=== PATIENT | female | born 1960 | race Caucasian/White ===

== ENCOUNTER 2018-03-17 12:38 | Observation (INO) ==
[2018-03-17] MEDS ORDERED: Aspirin 81 MG TAB.CHEW PO ONE (12:46)
[2018-03-17] MEDS ORDERED: Nitroglycerin 0.4 MG TAB.SUBL SL ONE (12:46)
--- NOTE | 2018-03-17 13:06 | Emergency Department Note ---
Disposition Clinical Impression: Chest pain Qualifiers: Chest pain type: unspecified Qualified Code(s): R07.9 - Chest pain, unspecified Disposition: Admitted As Inpatient Condition: Good Referrals: Eliezer Arita MD [Primary Care Provider] - Forms: ED Satisfaction Letter Time of Disposition: 14:32 Chest Pain HPI - General Chief Complaint: ED Chest Pain Stated Complaint: right shoulder pain worsening now in chest Time Seen by Provider: 03/17/18 12:45 Source: patient Limitations: no limitations Vital Signs Reviewed: Yes Nursing Notes Reviewed: Yes - History of Present Illness HPI Narrative: 57 year old female presntes to the ED with complaints of right sided chest pain/ pressure that started this mornig and radiates to the left arm now. She states that she has had a 3 vessel bypass in the past and that she chronic right shoulder pain with arthritis and this is a different type of pressurein her chest which is now radiating in to her left arm. She has muliptle risk factors and a concernling clinical history. PAtinet states that she also is diaphoretic and has exertional dyspnea with it as well. No vomitting or nausea. Severity scale (1-10): 6 - Related Data Home Medications Medication Instructions Recorded Confirmed Albuterol Sulfate [Albuterol 2 puff IH Q4HR PRN 10/12/15 03/17/18 Inhaler] Metoprolol [Lopressor] 25 mg PO BID 10/12/15 03/17/18 Aclidinium Dawson [Tudorza 400 mcg IH BID 01/25/16 03/17/18 Pressair] Aspirin Enteric Coated [Aspirin EC] 81 mg PO BID 01/25/16 03/17/18 Budesonide/Formoterol 160/4.5 2 puff IH BIDR 01/25/16 03/17/18 [Symbicort 160/4.5] Citalopram [CeleXA] 20 mg PO DAILY 02/15/17 03/17/18 Isosorbide MONOnitrate (24 HR) 30 mg PO DAILY 02/15/17 03/17/18 [Imdur] Atorvastatin [Lipitor] 40 mg PO HS 02/02/18 03/17/18 Albuterol Sulfate [Albuterol 2 puff IH Q6H PRN 03/17/18 03/17/18 Inhaler] Allergies Allergy/AdvReac Type Severity Reaction Status Date / Time No Known Allergies Allergy Verified 03/17/18 13:58 Constitutional: Denies: fever, chills, weakness, weight change Eyes: Denies: eye pain, eye discharge, vision change ENT ED: Denies: ear pain, throat pain, dental pain, hearing loss, epistaxis, congestion, dysphagia Cardiovascular: Reports: chest pain, dyspnea on exertion. Denies: palpitations , edema, syncope Respiratory: Denies: cough, dyspnea, wheezes, hemoptysis, stridor Gastrointestinal: Denies: abdominal pain, nausea, vomiting, diarrhea, constipation, hematemesis, melena, hematochezia Genitourinary: Denies: dysuria, frequency, hematuria, discharge Musculoskeletal: Denies: back pain, neck pain, arthralgia, myalgia Integumentary: Denies: rash, abrasion, lesions Neurological: Denies: headache, weakness, numbness, paresthesias, confusion, abnormal gait, vertigo Psychiatric: Denies: anxiety, depression, suicidal thoughts, homicidal thoughts , auditory hallucinations, visual hallucinations Endocrine: Denies: fatigue Hematological/Lymphatic: Denies: easy bleeding, easy bruising Allergic/Immunologic: Denies: facial swelling, urticaria Chest Pain PMH - Past Medical History Medical history: Reports: COPD, coronary artery disease, hyperlipidemia, hypertension, myocardial infarction Surgical history: Reports: cholecystectomy, coronary bypass (CABG), herniorrhaphy Psychiatric history: Reports: no psych history 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 - Social History Smoking Status: Current every day smoker Alcohol use: Reports: none Drug use: Reports: none Physical Exam - General Limitations: no limitations General appearance: alert, in no apparent distress - Head Head exam: atraumatic, normocephalic, normal inspection - Eye Eye exam: Present: normal appearance, PERRL, EOMI - Expanded Eye Exam Pupils: Left: reactive - ENT ENT exam: normal exam, normal oropharynx, mucous membranes moist - Expanded ENT Exam External ear exam: Present: normal external inspection Mouth exam: Present: normal external inspection Teeth exam: Present: normal inspection Throat exam: Present: normal inspection - Neck Neck exam: Present: normal inspection, full ROM, trachea midline - Chest Chest inspection: Present: normal inspection, symmetric chest wall rise - Respiratory Respiratory exam: Present: normal lung sounds bilaterally - Cardiovascular Cardiovascular exam: Present: regular rate, normal rhythm, normal heart sounds - Abdominal Exam Abdominal exam: Present: soft, Non-Tender. Absent: tenderness, distention, guarding, rebound, rigidity - Extremities Exam Extremities exam: Present: normal inspection, full ROM. Absent: tenderness, pedal edema - Expanded Upper Extremity Exam Shoulder exam: Present: normal inspection, full ROM Arm exam: Present: normal inspection, full ROM Elbow exam: Present: normal inspection, full ROM Forearm/Wrist exam: Present: normal inspection, full ROM Hand exam: Present: normal inspection, full ROM Vascular exam: Normal: capillary refill, radial pulse - Expanded Lower Extremity Exam Hip/Pelvis exam: Present: normal inspection, full ROM Upper leg exam: Present: normal inspection, full ROM Knee exam: Present: normal inspection, full ROM Lower leg exam: Present: normal inspection, full ROM Ankle exam: Present: normal inspection, full ROM Foot/toe exam: Present: normal inspection, full ROM Neurovascular/Tendon exam: Absent: motor deficit, sensory deficit, tendon deficit - Back Exam Back exam: Present: normal inspection, full ROM. Absent: tenderness - Neurological Exam Neurological exam: Present: alert, oriented X3 - Expanded Neurological Exam Patient oriented to: Present: person, place, time Coma Scale Eye Opening: Spontaneous Coma Scale Motor Response: Obeys Commands Coma Scale Verbal Response: Oriented Coma Scale Total: 15 - Psychiatric Psychiatric exam: Present: normal affect, normal mood - Skin Skin exam: Present: warm, dry, intact, normal color Course Course Narrative: we will do cardiopulmonary workup and treat with ASA and nitro, likly admit to medicine - Reevaluation(s) Reevaluation #1: discussed case with Dr. brown and he accepts patient to his service. Yanelykristine has been updated and is agreeeable to admission. Time: 14:31 Vital Signs Temperature 98.2 F 03/17/18 12:41 Pulse Rate 94 03/17/18 12:41 Respiratory Rate 18 03/17/18 12:41 Blood Pressure 144/91 03/17/18 12:41 O2 Sat by Pulse Oximetry 96 03/17/18 12:41 Temperature 98.2 F 03/17/18 12:49 Pulse Rate 76 03/17/18 14:19 Respiratory Rate 18 03/17/18 14:19 Blood Pressure 124/76 03/17/18 14:19 O2 Sat by Pulse Oximetry 95 03/17/18 14:19 Oxygen Delivery Oxygen Delivery Room Air Chest Pain - Medical Records Medical records reviewed: Yes I reviewed the patient's medical records. - Lab Data Lab results reviewed: Yes I reviewed the patient's lab results. Result diagrams: 03/17/18 13:04 03/17/18 13:04 Lab Results 03/17/18 03/17/18 03/17/18 Range/Units 13:04 13:04 13:04 WBC (4.3-11.1) K/mcL RBC (3.82-4.97) M/mcL Hgb (11.5-15.4) g/dL Hct (35.3-44.9) % MCV (83.0-100.0) fL MCH (28.0-33.3) pg MCHC (31.6-35.5) g/dL RDW (11.5-14.5) % Plt Count (140-400) K/mcL MPV (9.4-12.4) fL Immature Gran % (0-4) % Seg Neutrophils % % Lymphocytes % % Monocytes % % Eosinophils % % Basophils % % Neutrophils # (1.6-8.9) K/mcL Lymphocytes # (0.6-4.6) K/mcL Monocytes # (0.0-1.3) K/mcL Eosinophils # (0.0-0.6) K/mcL Basophils # (0.0-0.2) K/mcL PT 11.0 (9.4-12.1) Seconds INR 1.0 APTT 34.9 (26.0-36.0) Seconds Sodium (136-145) mEq/L Potassium (3.5-5.1) mEq/L Chloride (98-107) mEq/L Carbon Dioxide (23-29) mEq/L BUN (6-20) mg/dL Creatinine (0.60-1.20) mg/dL Est GFR ( Amer) (> 60) Est GFR (Non-Af Amer) (> 60) BUN/Creatinine Ratio (6-26) Glucose (70-105) mg/dL Calculated Osmolality (280-300) Calcium (8.6-10.3) mg/dL Total Bilirubin 0.9 (0.3-1.0) mg/dL Direct Bilirubin 0.2 (0.0-0.2) mg/dL Indirect Bilirubin 0.7 (0.0-1.2) mg/dL AST 21 (13-39) Units/L ALT 24 (7-52) Units/L Alkaline Phosphatase 84 (34-104) Units/L Troponin I (< 0.04) ng/mL B-Natriuretic Peptide 19 (Less than 100) pg/mL Serum Total Protein 6.7 (6.4-8.9) g/dL Albumin 4.3 (3.5-5.7) g/dL Globulin 2.4 (2.4-3.5) g/dL Albumin/Globulin Ratio 1.8 (1.1-2.2) Lipase 26 (11-82) Units/L Urine Color (Yellow) Urine Clarity (Clear) Urine pH (5.0-8.0) pH Units Ur Specific [place] (1.010-1.025) Urine Protein (Neg-Trace) mg/dL Urine Glucose (UA) (Normal) mg/dL Urine Ketones (Negative) mg/dL Urine Blood (Negative) Urine Nitrite (Negative) Urine Bilirubin (Negative) Urine Urobilinogen (Normal) mg/dL Ur Leukocyte Esterase (Negative) Ur Culture Indicated? (NO) 03/17/18 03/17/18 03/17/18 Range/Units 13:04 13:04 13:38 WBC 6.3 (4.3-11.1) K/mcL RBC 5.06 H (3.82-4.97) M/mcL Hgb 15.4 (11.5-15.4) g/dL Hct 45.0 H (35.3-44.9) % MCV 88.9 (83.0-100.0) fL MCH 30.4 (28.0-33.3) pg MCHC 34.2 (31.6-35.5) g/dL RDW 12.0 (11.5-14.5) % Plt Count 275 (140-400) K/mcL MPV 8.8 L (9.4-12.4) fL Immature Gran % 0.6 (0-4) % Seg Neutrophils % 57.1 % Lymphocytes % 35.8 % Monocytes % 4.4 % Eosinophils % 1.3 % Basophils % 0.8 % Neutrophils # 3.6 (1.6-8.9) K/mcL Lymphocytes # 2.3 (0.6-4.6) K/mcL Monocytes # 0.3 (0.0-1.3) K/mcL Eosinophils # 0.1 (0.0-0.6) K/mcL Basophils # 0.1 (0.0-0.2) K/mcL PT (9.4-12.1) Seconds INR APTT (26.0-36.0) Seconds Sodium 136 (136-145) mEq/L Potassium 3.7 (3.5-5.1) mEq/L Chloride 104 (98-107) mEq/L Carbon Dioxide 25 (23-29) mEq/L BUN 6 (6-20) mg/dL Creatinine 0.67 (0.60-1.20) mg/dL Est GFR ( Amer) > 60 (> 60) Est GFR (Non-Af Amer) > 60 (> 60) BUN/Creatinine Ratio 9 (6-26) Glucose 172 H (70-105) mg/dL Calculated Osmolality 284 (280-300) Calcium 9.2 (8.6-10.3) mg/dL Total Bilirubin (0.3-1.0) mg/dL Direct Bilirubin (0.0-0.2) mg/dL Indirect Bilirubin (0.0-1.2) mg/dL AST (13-39) Units/L ALT (7-52) Units/L Alkaline Phosphatase (34-104) Units/L Troponin I < 0.03 (< 0.04) ng/mL B-Natriuretic Peptide (Less than 100) pg/mL Serum Total Protein (6.4-8.9) g/dL Albumin (3.5-5.7) g/dL Globulin (2.4-3.5) g/dL Albumin/Globulin Ratio (1.1-2.2) Lipase (11-82) Units/L Urine Color Yellow (Yellow) Urine Clarity Clear (Clear) Urine pH 6.5 (5.0-8.0) pH Units Ur Specific [place] 1.010 (1.010-1.025) Urine Protein Negative (Neg-Trace) mg/dL Urine Glucose (UA) Normal (Normal) mg/dL Urine Ketones Negative (Negative) mg/dL Urine Blood Negative (Negative) Urine Nitrite Negative (Negative) Urine Bilirubin Negative (Negative) Urine Urobilinogen Normal (Normal) mg/dL Ur Leukocyte Esterase Negative (Negative) Ur Culture Indicated? NO (NO) - Radiology Data Radiology results reviewed: Yes I reviewed the patient's radiology results. - EKG Data EKG attestation: Yes I reviewed and interpreted this EKG. EKG results narrative: NSR with rate of 93. NO STEMI. thera re t wave inversion in leads V1-3 howere this is present in the previous EKG on 01/02/18. 1242 Heart Score - Score History: Moderately Suspicious EKG: Non Specific repolarisation Disturbance Age: 45-65 Risk Factors: Equal/Greater than 3 risk factor or history of atherosclerotic disease Troponin: Less than normal limit HEART Score Total: 5
[2018-03-17 13:20] LABS: Basophils # 0.1 K/mcL (0.0-0.2); Basophils % 0.8 %; Eosinophils # 0.1 K/mcL (0.0-0.6); Eosinophils % 1.3 %; Hemoglobin 15.4 g/dL (11.5-15.4); Immature Granulocytes % 0.6 % (0-4); Lymphocytes # 2.3 K/mcL (0.6-4.6); Lymphocytes % 35.8 %; Mean Corpuscular HGB Conc 34.2 g/dL (31.6-35.5); Mean Corpuscular Hemoglobin 30.4 pg (28.0-33.3); Mean Corpuscular Volume 88.9 fL (83.0-100.0); Mean Platelet Volume 8.8 fL (9.4-12.4); Monocytes # 0.3 K/mcL (0.0-1.3); Monocytes % 4.4 %; Neutrophils # 3.6 K/mcL (1.6-8.9); Platelet Count 275 K/mcL (140-400); Red Blood Count 5.06 M/mcL (3.82-4.97); Segmented Neutrophils % 57.1 %
[2018-03-17 13:32] LABS: Activated Partial Thrombo Time 34.9 Seconds (26.0-36.0)
[2018-03-17 13:38] LABS: Troponin I < 0.03 ng/mL (< 0.04)
[2018-03-17 13:49] LABS: BUN/Creatinine Ratio 9 (6-26); Blood Urea Nitrogen 6 mg/dL (6-20); Calcium 9.2 mg/dL (8.6-10.3); Carbon Dioxide 25 mEq/L (23-29); Chloride 104 mEq/L (98-107); Glucose 172 mg/dL (70-105); Osmolality,Calculated 284 (280-300); Potassium 3.7 mEq/L (3.5-5.1); Sodium 136 mEq/L (136-145); eGFR For African Americans > 60 (> 60); eGFR For Non-African Americans > 60 (> 60)
[2018-03-17 13:52] LABS: Albumin 4.3 g/dL (3.5-5.7); Albumin/Globulin Ratio 1.8 (1.1-2.2); Bilirubin,Direct 0.2 mg/dL (0.0-0.2); Bilirubin,Indirect 0.7 mg/dL (0.0-1.2); Bilirubin,Total 0.9 mg/dL (0.3-1.0); Globulin 2.4 g/dL (2.4-3.5); Total Protein 6.7 g/dL (6.4-8.9)
[2018-03-17 13:56] LABS: Bilirubin,Urine Negative (Negative); Blood,Urine Negative (Negative); Clarity,Urine Clear (Clear); Color,Urine Yellow (Yellow); Glucose,Urine (UA) Normal (Normal); Ketones,Urine Negative (Negative); Leukocyte Esterase,Urine Negative (Negative); Nitrite,Urine Negative (Negative); PH,Urine 6.5 pH Units (5.0-8.0); Protein,Urine Negative (Neg-Trace); Urobilinogen,Urine Normal (Normal)
--- NOTE | 2018-03-17 15:56 | Electrocardiograph Report ---
[facility] Test Date: 2018-03-17 Pat Name: Mimi Nelson Department: 103 Room: 3B23 Gender: F Professional Nursing Tutor: VASILIY : 1960 Requested By: Fatimah Christianson Order Number: [id number] Reading MD: Roc Langford Measurements Intervals [place] Rate: 93 P: 33 ID: [id number] QRS: 22 QRSD: 85 T: 64 QT: 360 QTc: 411 Interpretive Statements SINUS RHYTHM POSSIBLE ANTERIOR MYOCARDIAL INFARCTION [30 ms Q WAVE IN V3/V4, OR R < 0.2 mV IN V4], OF INDETERMINATE AGE WARNING: DATA QUALITY MAY AFFECT INTERPRETATION Electronically Signed On 03-17-2018 15:54:52 EDT by Roc Langford
[2018-03-17] MEDS ORDERED: Acetaminophen 325 MG TABLET PO PRN (16:03)
[2018-03-17] MEDS ORDERED: *HR* HYDROcodone/Acet 5/325 mg TABLET PO PRN (16:03)
[2018-03-17] MEDS ORDERED: Naloxone 0.4 MG/ML INJ IVP PRN (16:03)
[2018-03-17] MEDS ORDERED: Ipratropium/Albuterol Neb 3 ML IH PRN (16:05)
[2018-03-17] MEDS ORDERED: Nitroglycerin 0.4 MG TAB.SUBL SL PRN (16:07)
[2018-03-17] MEDS ORDERED: Ondansetron 4 MG/2 ML VIAL IVP PRN (17:06)
--- NOTE | 2018-03-17 17:25 | Internal Med History&Physical ---
<JulianaDarian peres - Last Filed: 03/17/18 17:52> Date of Encounter: 03/17/18 Time of Encounter: 16:00 Internal Medicine - H&P: HPI Chief complaint: CP Admitted From: Emergency Dept Plans for Post Hospital Care: Home History of present illness: Ms. Nelson is a 57 year old female w/PMH of COPD, CAD, HLD, HTN, and current tobacco use presents from the ED w/CC of pain that began this morning in pts. right shoulder and moved to central chest as pressure w/radiation down bilateral arms. Pt. also reports headache. Denies N/V/diaphoresis. Pt. reports chronic pain in rt. shoulder d/t arthritis. Cardiac hx includes triple bypass in 2010, nuclear stress 01/14/18, and heart cath 02/12 w/o stents. Pt. reports she sees Dr. Ramírez who was notified of pts. admission. No formal consult ordered yet. Risk factors include: smoking 1 PPD currently, CAD, HLD, HTN, and obesity. Pt. reports SOB and dyspnea d/t COPD but denies recent illness, fever, chills, nausea, vomiting, changes in vision, diaphoresis, unusual bleeding, abdominal pain, constipation, diarrhea, dizziness, lightheadedness, pre-syncope, or syncope. Past Med Surg Social Fam HX - Past Medical History Source: patient, old records reviewed Medical history: COPD, coronary artery disease, hyperlipidemia, hypertension Psychiatric history: no psych history - Past Surgical History Surgical History: cholecystectomy, coronary bypass (CABG) (Triple bypass in 2010 ), herniorrhaphy - Social History Smoking Status: Current every day smoker Packs per day: 1 PPD Smokeless Tobacco Status: No Alcohol use: none Drug use: none Current living situation: Home Activity Level: Independent ambulation Recent Out of Country Travel Within the Last 8 Weeks: No Exposure or Possible Exposure to Illness During Travel: No - Family History Mother Race: Family Member Ethnicity: Non- Living Status: Age at : 66 Cause of : Blood clot Hx Family Cardiac Disorders: Yes (HTN, HLD, Blood clot) Hx Family Endocrine Disorder: Yes (DM) Father Race: Family Member Ethnicity: Non- Living Status: Age at : 84 Cause of : Old age Hx Family Cardiac Disorders: Yes (HTN) Brother Race: Family Member Ethnicity: Non- Living Status: Still Living Hx Family Cardiac Disorders: Yes (CAD, HTN) Sister Race: Family Member Ethnicity: Non- Living Status: Still Living Hx Family Cardiac Disorders: Yes (MD, CAD, CABG x2, HTN) Internal Medicine - H&P: Meds Albuterol Sulfate [Albuterol Inhaler] 2 puff IH Q4HR PRN 10/12/15 [History] Metoprolol [Lopressor] 25 mg PO BID 10/12/15 [History] Aclidinium [place] [Tudorza Pressair] 400 mcg IH BID 01/25/16 [History] Aspirin Enteric Coated [Aspirin EC] 81 mg PO BID 01/25/16 [History] Budesonide/Formoterol 160/4.5 [Symbicort 160/4.5] 2 puff IH BIDR 01/25/16 [ History] Citalopram [CeleXA] 20 mg PO DAILY 02/15/17 [History] Isosorbide MONOnitrate (24 HR) [Imdur] 30 mg PO DAILY 02/15/17 [History] Atorvastatin [Lipitor] 40 mg PO HS 02/02/18 [History] Albuterol Sulfate [Albuterol Inhaler] 2 puff IH Q6H PRN 03/17/18 [History] 3 Allergy/AdvReac Type Severity Reaction Status Date / Time No Known Allergies Allergy Verified 03/17/18 13:58 All Systems PM: A 10-system review of systems was performed and is negative for pertinent findings except as documented above in the HPI. - Constitutional Constitutional: no chills, no fever(s), no night sweats - EENT Eyes: no change in vision, no discharge, no pain, no photophobia Ears: no ear discharge, no ear pain, no tinnitus Nose, mouth and throat: no dysphagia, no nasal discharge, no neck pain, no sore throat - Breasts Breasts: as per HPI - Cardiovascular Cardiovascular ROS IM: as per HPI, chest pain, dyspnea (D/t COPD), dyspnea on exertion (D/t COPD), no diaphoresis, no lightheadedness, no palpitations, no syncope - Respiratory Respiratory: as per HPI, cough (D/t COPD), dyspnea (D/t COPD), dyspnea on exertion (D/t COPD), no wheezing, no excessive phlegm production - Gastrointestinal Gastrointestinal: no abdominal pain, no diarrhea, no hematemesis, no hematochezia, no melena, no nausea, no vomiting - Genitourinary Genitourinary: no change in urinary stream, no dysuria, no flank pain, no hematuria Menstruation: as per HPI - Musculoskeletal Musculoskeletal ROS IM: no numbness, no tingling - Integumentary Integumentary IM: no rash, no unusual bruising - Neurological Neurological ROS: no confusion, no convulsions, no focal weakness, no numbness, no tingling, no tremor(s) - Psychiatric Psychiatric: as per HPI - Endocrine Endocrine IM: as per HPI - Hematologic/Lymphatic Hematologic/Lymphatic: no easy bruising - Allergic/Immunologic Allergic/Immunologic: as per HPI - Constitutional Vitals: Temp Pulse Resp BP Pulse Ox 98.1 F 74 15 143/81 96 03/17/18 15:33 03/17/18 15:33 03/17/18 15:33 03/17/18 15:33 03/17/18 15:33 General appearance: Present: cooperative, A&O X 3, pleasant, no acute distress, obese, answers questions appropriately - Head Head exam: Present: atraumatic, normocephalic - Eye Eye exam: Present: PERRL, conjuntiva pink, sclera anicteric Pupils: Present: PERRL - ENT ENT exam: Present: normal exam - Neck Neck exam general surgery: Present: normal inspection, supple, trachea midline. Absent: lymphadenopathy - Respiratory Respiratory exam: Present: decreased breath sounds. Absent: accessory muscle use, rales, rhonchi, wheezes - Cardiovascular Cardiovascular exam: Present: RRR, +S1, +S2. Absent: diastolic murmur, gallop, rubs, systolic murmur - GI/Abdominal GI/Abdominal exam: Present: normal bowel sounds, soft, no peritoneal signs. Absent: distended, tenderness - Rectal Rectal exam: Present: deferred - Additional comments: exam deferred. - Extremities Exam Extremities exam: Present: warm, radial pulses palpable and symmetrical. Absent : calf tenderness, cyanotic, pedal edema - Back Exam Back exam: Present: normal inspection - Neurological Exam Neurological exam: Present: alert, CN II-XII intact, oriented X3, no focal deficits. Absent: pronater drift, facial droop, speech deficit - Psychiatric Psychiatric exam: Present: normal affect, normal mood - Skin Skin exam: Present: dry, intact Internal Med - H&P Results - Labs CBC & Chem 7: 03/17/18 13:04 03/17/18 13:04 - EKG Data EKG shows normal: sinus rhythm - EKG Data Prior EKG available for review: yes EKG comments: 03/17/18 17:31 EKG dated 01/02/18 shows sinus rhythm with low QRS voltage in precordial leads, possible anterior myocardial infarction (probably old). EKG dated 03/17/18 sinus rhythm with possible anterior myocardial infarction of indeterminate age. - Diagnostic Studies Chest x-ray Additional comments: Impressions Chest X-Ray 03/17/18 12:46 IMPRESSION: No acute process. D/ / Alfie Marcelino MD / Alfie Marcelino MD Interpreting Provider: Alfie Marcelino MD - Assessment and plan (1) Chest pain Current Visit: Yes Status: Acute Assessment and plan: Acute CP that began this a.m. w/right shoulder pain and moved to central chest as pressure w/radiation down bilateral arms. Pt. also reports headache. Denies N /V/diaphoresis. Pt. reports chronic pain in rt. shoulder d/t arthritis. Cardiac hx includes triple bypass in 2010, nuclear stress 01/14/18, and heart cath w/o stents. Currently smokes 1 PPD. Initial troponin <0.03. Will trend. Continuous cardiac telemetry. Echocardiogram ordered. Reports being followed by Dr. Ramírez who was notified of pts. admission. Will consider Cardiology consult if troponins and/or Echocardiogram results abnormal. Determination to be made by a.m. team. Nitro SL PRN. Aspirin daily. Continue patient's Lipitor, Imdur, and Lopressor. Patient is high risk for cardiac event and further morbidity based on cardiac history including triple bypass in 2010, current sx; current risk factors including HTN, HLD, obesity, and tobacco use; and familial hx. Observation. Qualifiers: Chest pain type: unspecified Qualified Code(s): R07.9 - Chest pain, unspecified (2) COPD (chronic obstructive pulmonary disease) Current Visit: Yes Status: Chronic Assessment and plan: Hx of chronic COPD. Stable. Continue pts. inhaler Q4HR PRN, Symbicort, Tudorza Pressair, and add DuoNebs Q6HR PRN. Supplemental O2 w/titration and SpO2 monitoring. Qualifiers: COPD type: unspecified COPD Qualified Code(s): J44.9 - Chronic obstructive pulmonary disease, unspecified (3) CAD (coronary artery disease) Current Visit: Yes Status: Chronic Assessment and plan: Hx of chronic CAD. Hx of triple bypass in 2010. Hx of HTN and HLD. Continue pts. Aspirin therapy, Lipitor, Imdur, and Lopressor. Continuous cardiac telemetry. Qualifiers: Coronary Disease-Associated Artery/Lesion type: [place] artery [place] vs. transplanted heart: [place] heart Associated angina: angina presence unspecified Qualified Code(s): I25.10 - Atherosclerotic heart disease of [place] coronary artery without angina pectoris (4) HLD (hyperlipidemia) Current Visit: Yes Status: Chronic Assessment and plan: Hx of chronic HLD. Lipid panel in a.m. labs. Continue pts. Lipitor. Qualifiers: Hyperlipidemia type: pure hypercholesterolemia Qualified Code(s): E78.00 - Pure hypercholesterolemia, unspecified; E78.0 - Pure hypercholesterolemia (5) HTN (hypertension) Current Visit: Yes Status: Chronic Assessment and plan: Hx of chronic HTN. Monitor pt. and VS. Continue pts. Imdur and Lopressor. Qualifiers: Hypertension type: essential hypertension Qualified Code(s): I10 - Essential (primary) hypertension (6) Depression Current Visit: Yes Status: Chronic Assessment and plan: Hx of chronic depression. Continue pts. Celexa. Qualifiers: Depression Type: unspecified Qualified Code(s): F32.9 - Major depressive disorder, single episode, unspecified (7) DVT prophylaxis Current Visit: Yes Status: Acute Assessment and plan: Heparin 5,000 units SQ Q8HR for DVT prophylaxis. Monitor pt. for signs of bleeding. (8) Hyperglycemia Current Visit: Yes Status: Acute Assessment and plan: Acute hyperglycemia w/BG of 172 on admission. Pt. denies hx of diabetes. BG checks ACHS. A1c in a.m. labs. Will add low-dose correction insulin sliding scale with hypoglycemic protocol patient continues to be hyperglycemic. - Time Spent With Patient Total time spent is greater than 50% in coordination of care (as documented) at patient's floor/unit and/or counseling patient: Greater than 35 minutes <Cesar Sheffield - Last Filed: 03/18/18 11:01> Date of Encounter: 03/18/18 Internal Medicine - H&P: HPI History of present illness: Ms. Nelson is a 57 year old female All Systems PM: A 10-system review of systems was performed and is negative for pertinent findings except as documented above in the HPI. - Constitutional Vitals: Temp Pulse Resp BP Pulse Ox 97.9 F 71 16 108/70 95 03/18/18 07:05 03/18/18 07:05 03/18/18 10:22 03/18/18 07:05 03/18/18 10:22 Internal Med - H&P Results - Labs CBC & Chem 7: 03/18/18 00:48 03/18/18 00:48 Labs: Short CBC 03/18/18 Range/Units 00:48 WBC 5.5 (4.3-11.1) K/mcL Hgb 14.5 (11.5-15.4) g/dL Hct 42.6 (35.3-44.9) % Plt Count 256 (140-400) K/mcL Neutrophils # 2.8 (1.6-8.9) K/mcL BMP 03/18/18 00:48 Sodium 140 Potassium 3.7 Chloride 107 Carbon Dioxide 27 BUN 8 Creatinine 0.69 Glucose 143 H Calcium 9.3 Cardiac Enzymes 03/17/18 03/18/18 Range/Units 18:02 00:48 Troponin I < 0.03 < 0.03 (< 0.04) ng/mL Liver Function 03/18/18 Range/Units 00:48 Total Bilirubin 0.7 (0.3-1.0) mg/dL AST 17 (13-39) Units/L ALT 21 (7-52) Units/L Alkaline Phosphatase 79 (34-104) Units/L Albumin 4.0 (3.5-5.7) g/dL - Attending Attestation Discussed with JONATHAN and agree with assessment and plan as above. Patient is a 57-year-old female with past medical history significant for CABG who presents with chest pain. On cardiovascular exam patient was in regular rate and rhythm with no murmurs rubs or gallops; nonacute distress First set of cardiac biomarkers were negative so we will trend serial troponins overnight and monitor on telemetry for ACS rule out - Assessment and plan (1) Chest pain Current Visit: Yes Status: Acute Qualifiers: Chest pain type: unspecified Qualified Code(s): R07.9 - Chest pain, unspecified (2) COPD (chronic obstructive pulmonary disease) Current Visit: Yes Status: Chronic Qualifiers: COPD type: unspecified COPD Qualified Code(s): J44.9 - Chronic obstructive pulmonary disease, unspecified (3) CAD (coronary artery disease) Current Visit: Yes Status: Chronic Qualifiers: Coronary Disease-Associated Artery/Lesion type: [place] artery [place] vs. transplanted heart: [place] heart Associated angina: angina presence unspecified Qualified Code(s): I25.10 - Atherosclerotic heart disease of [place] coronary artery without angina pectoris (4) HLD (hyperlipidemia) Current Visit: Yes Status: Chronic Qualifiers: Hyperlipidemia type: pure hypercholesterolemia Qualified Code(s): E78.00 - Pure hypercholesterolemia, unspecified; E78.0 - Pure hypercholesterolemia (5) HTN (hypertension) Current Visit: Yes Status: Chronic Qualifiers: Hypertension type: essential hypertension Qualified Code(s): I10 - Essential (primary) hypertension (6) DVT prophylaxis Current Visit: Yes Status: Acute (7) Depression Current Visit: Yes Status: Chronic Qualifiers: Depression Type: unspecified Qualified Code(s): F32.9 - Major depressive disorder, single episode, unspecified (8) Hyperglycemia Current Visit: Yes Status: Acute - Time Spent With Patient Total time spent is greater than 50% in coordination of care (as documented) at patient's floor/unit and/or counseling patient:
[2018-03-17] MEDS: *HR* Heparin 5,000 UNIT/ML VIAL SQ SCH (20:53)
[2018-03-17] MEDS: (Aclidinium Bromide [Tudorza Pressair] 400 MCG) IH SCH (20:53)
[2018-03-17] MEDS: Budesonide/Formoterol 160/4.5 MDI IH SCH (22:30)
[2018-03-18 01:26] LABS: Basophils % 0.7 %; Eosinophils # 0.1 K/mcL (0.0-0.6); Eosinophils % 1.6 %; Hematocrit 42.6 % (35.3-44.9); Hemoglobin 14.5 g/dL (11.5-15.4); Immature Granulocytes % 0.7 % (0-4); Lymphocytes # 2.3 K/mcL (0.6-4.6); Lymphocytes % 41.3 %; Mean Corpuscular Hemoglobin 30.1 pg (28.0-33.3); Mean Corpuscular Volume 88.6 fL (83.0-100.0); Mean Platelet Volume 9.2 fL (9.4-12.4); Monocytes # 0.3 K/mcL (0.0-1.3); Monocytes % 5.1 %; Neutrophils # 2.8 K/mcL (1.6-8.9); Platelet Count 256 K/mcL (140-400); Red Blood Count 4.81 M/mcL (3.82-4.97); Segmented Neutrophils % 50.6 %
[2018-03-18 01:34] LABS: Alanine Aminotransferase 21 Units/L (7-52); Albumin/Globulin Ratio 1.7 (1.1-2.2); Alkaline Phosphatase 79 Units/L (34-104); Aspartate Amino Transferase 17 Units/L (13-39); BUN/Creatinine Ratio 12 (6-26); Bilirubin,Total 0.7 mg/dL (0.3-1.0); Blood Urea Nitrogen 8 mg/dL (6-20); Calcium 9.3 mg/dL (8.6-10.3); Carbon Dioxide 27 mEq/L (23-29); Chloride 107 mEq/L (98-107); Chol/HDL Ratio 7.4 (0-4.9); Cholesterol 272 mg/dL (< 200); Globulin 2.3 g/dL (2.4-3.5); Glucose 143 mg/dL (70-105); HDL Cholesterol 37 mg/dL (40-59); Magnesium 2.2 mg/dL (1.6-2.6); Osmolality,Calculated 291 (280-300); Potassium 3.7 mEq/L (3.5-5.1); Sodium 140 mEq/L (136-145); Total Protein 6.3 g/dL (6.4-8.9); Triglycerides 483 mg/dL (< 150); eGFR For African Americans > 60 (> 60); eGFR For Non-African Americans > 60 (> 60)
[2018-03-18] MEDS: *HR* Heparin 5,000 UNIT/ML VIAL SQ SCH ×2 (05:30→14:45)
[2018-03-18] MEDS: (Aclidinium Bromide [Tudorza Pressair] 400 MCG) IH SCH (07:54)
[2018-03-18] MEDS ORDERED: Aspirin Enteric Coated 81 MG Tablet PO SCH (09:00)
[2018-03-18] MEDS ORDERED: Isosorbide MONOnitrate (24 HR) 30 MG TAB.ER.24H PO SCH (09:00)
[2018-03-18 09:41] LABS: Estimated Average Glucose 123 mg/dl; Hemoglobin A1C 5.9 %
[2018-03-18] MEDS: Budesonide/Formoterol 160/4.5 MDI IH SCH (10:22)
--- NOTE | 2018-03-18 15:07 | Discharge Summary ---
- NOTES TO OUTPATIENT PROVIDER Notes to Outpatient Provider: Increased Imdur to 60mg Orders not resulted at time of discharge: Pending orders 03/19/18 04:00 Complete Blood Count [HEME] AM 0400 Comprehensive Metabolic Panel AM 0400 03/20/18 04:00 Complete Blood Count [HEME] AM 0400 Comprehensive Metabolic Panel AM 0400 Date of Encounter: 03/18/18 Time of Encounter: 15:02 - Discharge Diagnosis (1) Chest pain Priority: Primary Status: Acute Qualifiers: Chest pain type: unspecified Qualified Code(s): R07.9 - Chest pain, unspecified (2) COPD (chronic obstructive pulmonary disease) Priority: Secondary Status: Chronic Qualifiers: COPD type: unspecified COPD Qualified Code(s): J44.9 - Chronic obstructive pulmonary disease, unspecified (3) CAD (coronary artery disease) Priority: Secondary Status: Chronic Qualifiers: Coronary Disease-Associated Artery/Lesion type: [place] artery [place] vs. transplanted heart: [place] heart Associated angina: angina presence unspecified Qualified Code(s): I25.10 - Atherosclerotic heart disease of [place] coronary artery without angina pectoris (4) HLD (hyperlipidemia) Priority: Secondary Status: Chronic Qualifiers: Hyperlipidemia type: pure hypercholesterolemia Qualified Code(s): E78.00 - Pure hypercholesterolemia, unspecified; E78.0 - Pure hypercholesterolemia (5) HTN (hypertension) Priority: Secondary Status: Chronic Qualifiers: Hypertension type: essential hypertension Qualified Code(s): I10 - Essential (primary) hypertension (6) Depression Priority: Secondary Status: Chronic Qualifiers: Depression Type: unspecified Qualified Code(s): F32.9 - Major depressive disorder, single episode, unspecified (7) Hyperglycemia Priority: Secondary Status: Acute Hospital course: Ms. Nelson is a 57 year old female past medical history COPD CAD hyperlipidemia hypertension current tobacco use presented to the emergency room with complaints of chest pain that began in the right shoulder and moved to central chest described pain as pressure reading bilaterally both arms. Patient does have history of chronic right shoulder pain due to arthritis. She does have past cardiac history which includes a triple bypass in 2010 she underwent nuclear stress test 01/14/18 and a heart catheter and 02/12 without stents. She does follow with Dr. Ramírez. Cardiac troponins have been negative EKG with no acute ST-T wave abnormalities. Patient has been chest pain free during admission and has been ambulating in the hallways without any difficulty. Patient will follow-up with cardiology as outpatient we will increase Imdur to 60 mg. Advised patient to stop smoking. She is hemodynamically stable at this time I did give the patient a prescription for Imdur advised patient to follow-up with primary care physician cardiology since this provider noted her best and can adjust medications accordingly. Patient verbalized understanding she is hemodynamically stable and ready for discharge. Discharge discussed with: patient - Time Spent with Patient Total time spent providing and/or coordinating discharge services: - Discharge Medications Prescriptions: Isosorbide MONOnitrate (24 HR) [Imdur] 60 mg PO DAILY #30 tab.er.24h Home Medications: Albuterol Sulfate [Albuterol Inhaler] 2 puff IH Q4HR PRN 10/12/15 [History] Metoprolol [Lopressor] 25 mg PO BID 10/12/15 [History] Aclidinium [place] [Tudorza Pressair] 400 mcg IH BID 01/25/16 [History] Aspirin Enteric Coated [Aspirin EC] 81 mg PO BID 01/25/16 [History] Budesonide/Formoterol 160/4.5 [Symbicort 160/4.5] 2 puff IH BIDR 01/25/16 [ History] Citalopram [CeleXA] 20 mg PO DAILY 02/15/17 [History] Atorvastatin [Lipitor] 40 mg PO HS 02/02/18 [History] Albuterol Sulfate [Albuterol Inhaler] 2 puff IH Q6H PRN 03/17/18 [History] Isosorbide MONOnitrate (24 HR) [Imdur] 60 mg PO DAILY #30 tab.er.24h 03/18/18 [ Rx] Allergies/Adverse Reactions: 3 Allergy/AdvReac Type Severity Reaction Status Date / Time No Known Allergies Allergy Verified 03/17/18 13:58 Date of admission: 03/17/18 15:04 Primary care physician: Eliezer Arita Consults: 03/17/18 16:04 Consult to Hat Conditioner [CONS] Routine Reason for SW Consult: Please assess patient for possible home needs for post -discharge planning. 03/18/18 08:32 Consult to Nurse Navigator [CONS] Routine Comment: COPD Discharging clinician: Alejandra Atkins Anticipated date of discharge: 03/18/18 - Constitutional Vitals: Temp Pulse Resp BP Pulse Ox 97.9 F 71 16 108/70 95 03/18/18 07:05 03/18/18 07:05 03/18/18 10:22 03/18/18 07:05 03/18/18 10:22 General appearance: Present: cooperative, A&O X 3, pleasant, no acute distress, obese, answers questions appropriately - Head Head exam: Present: atraumatic, normocephalic - Eye Eye exam: Present: PERRL, conjuntiva pink, sclera anicteric Pupils: Present: PERRL - Neck Neck exam general surgery: Present: supple, trachea midline. Absent: lymphadenopathy - Respiratory Respiratory exam: Present: CTAB. Absent: accessory muscle use, rales, rhonchi, wheezes - Cardiovascular Cardiovascular exam: Present: RRR, +S1, +S2. Absent: diastolic murmur, gallop, rubs, systolic murmur - GI/Abdominal GI/Abdominal exam: Present: normal bowel sounds, soft, no peritoneal signs. Absent: distended, tenderness - Extremities Exam Extremities exam: Present: warm, radial pulses palpable and symmetrical. Absent : calf tenderness, cyanotic, pedal edema - Neurological Exam Neurological exam: Present: CN II-XII intact, oriented X3, no focal deficits. Absent: pronater drift, facial droop, speech deficit - Skin Skin exam: Present: dry, intact - Patient Status Disposition: Home, Self-Care Condition: Good Functional capacity at discharge: independent ambulation Overall status at discharge: patient is back to baseline - Discharge Instructions Instructions: Chest Pain (DC), Chronic Obstructive Pulmonary Disease (DC), Chronic Hypertension (DC) Follow Up With: Asaf Ramírez MD [Partnered Physician] - (Our offices will call you with an appointment time and date) Eliezer Arita MD [Primary Care Provider] - - Diet and Activity Activity: resume usual activities as tolerated Diet: low fat, low cholesterol, low salt diet
[2018-03-18 15:38] VITALS: BP 123/68
--- NOTE | 2018-03-18 17:28 | Electrocardiograph Report ---
[address] [place] [address] Test Date: 2018-03-18 Pat Name: Mimi Nelson Department: 113 Room: 3B23 Gender: F Rate Setter: : 1960 Requested By: Alejandra Atkins Order Number: [id number] Reading MD: Leon Sanchez Measurements Intervals [place] Rate: 64 P: 37 WV: 126 QRS: 19 QRSD: 83 T: 59 QT: 409 QTc: 418 Interpretive Statements SINUS RHYTHM LOW QRS VOLTAGE IN PRECORDIAL LEADS POSSIBLE ANTERIOR MYOCARDIAL INFARCTION, OF INDETERMINATE AGE Electronically Signed On 03-18-2018 17:26:39 EDT by Leon Sanchez
== END 2018-03-18 16:03 | disposition home or self-care (01) ==
LOC: 3BNU 12:38 → EMEROO 12:38 → 3BNU 15:23
PROVIDERS: ADMIT Hospitalist; ATTEND Hospitalist

== ENCOUNTER 2020-03-29 06:08 | Inpatient (IN) ==
[2020-03-29] MEDS ORDERED: Heparin 1,000 UNITS/500 mL 500 ML ONE (07:06)
[2020-03-29] MEDS ORDERED: 0.9 % Sodium Chloride 1,000 ML ONE (07:06)
[2020-03-29] MEDS ORDERED: *HR* Heparin 10,000 UNIT/10 ML VIAL ONE (07:06)
[2020-03-29] MEDS ORDERED: Nitroglycerin 1,000 MCG/10 ML VIAL IV ONE ×2 (07:07→10:04)
[2020-03-29] MEDS ORDERED: ISOVUE-370 200 ML INFUS..BTL ONE ×2 (07:07→09:35)
[2020-03-29] MEDS: 0.9 % Sodium Chloride 1,000 ML IVC SCH ×2 (07:27→17:34)
[2020-03-29] MEDS ORDERED: *HR* FentaNYL (PF) 100 MCG/2 ML VIAL ONE ×2 (08:58→09:58)
[2020-03-29] MEDS ORDERED: *HR* Midazolam HCl 2 MG/2 ML VIAL ONE ×2 (08:58→10:04)
[2020-03-29] MEDS ORDERED: Ondansetron 4 MG/2 ML VIAL ONE (09:02)
[2020-03-29] MEDS ORDERED: Tirofiban 12.5 MG/250ML 12.5 MG/250 ML BAG ONE (09:32)
[2020-03-29] MEDS ORDERED: Tirofiban 12.5 MG/250ML 12.5 MG/250 ML BAG IVC SCH (10:45)
[2020-03-29] MEDS: Albuterol 2.5 MG/3 ML NEBULIZER IH SCH ×4 (14:53→23:42)
[2020-03-29] MEDS: Budesonide/Formoterol 160/4.5 1 PUFF INH IH SCH (20:07)
[2020-03-29] MEDS ORDERED: Aspirin Enteric Coated 81 MG Tablet PO SCH (21:00)
[2020-03-29] MEDS: Nitroglycerin 0.4 MG TAB.SUBL SL PRN ×2 (23:06→23:38)
[2020-03-30] MEDS ORDERED: Ondansetron 4 MG/2 ML VIAL IVP PRN (00:42)
[2020-03-30 00:48] LABS: Hemoglobin 13.5 g/dL (11.5-15.4)
[2020-03-30 00:49] LABS: Mean Corpuscular Volume 93.3 fL (83.0-100.0)
[2020-03-30 00:50] LABS: Mean Corpuscular HGB Conc 32.1 g/dL (31.6-35.5); Mean Platelet Volume 8.8 fL (9.4-12.4); Platelet Count 296 K/mcL (140-400)
[2020-03-30 00:56] LABS: BUN/Creatinine Ratio 8 (6-26); Blood Urea Nitrogen 5 mg/dL (6-20); eGFR For African Americans > 60 (> 60); eGFR For Non-African Americans > 60 (> 60)
[2020-03-30 00:57] LABS: BUN/Creatinine Ratio 7 (6-26); Blood Urea Nitrogen 5 mg/dL (6-20); Calcium 8.6 mg/dL (8.6-10.3); Carbon Dioxide 24 mEq/L (23-29); Chloride 105 mEq/L (98-107); Glucose 120 mg/dL (70-105); Osmolality,Calculated 280 (280-300); Potassium 3.7 mEq/L (3.5-5.1); Sodium 136 mEq/L (136-145); eGFR For African Americans > 60 (> 60); eGFR For Non-African Americans > 60 (> 60)
[2020-03-30] MEDS ORDERED: *HR* Heparin 5,000 UNIT/ML VIAL IVP PRN ×2 (01:15)
[2020-03-30 01:59] LABS: Heparin anti-factor XA UFH < 0.04 IU/mL (0.30-0.70); Prothrombin Time 11.3 Seconds (9.4-12.1)
[2020-03-30] MEDS: Heparin 25,000 UNIT/250 ML D5W 25,000 UNIT/250 ML IV.SOLN IVC SCH (02:23)
[2020-03-30] MEDS: Albuterol 2.5 MG/3 ML NEBULIZER IH SCH ×6 (03:48→23:11)
[2020-03-30] MEDS: Budesonide/Formoterol 160/4.5 1 PUFF INH IH SCH ×2 (08:01→19:35)
[2020-03-30] MEDS ORDERED: Perflutren Lipid Microsphere 1.3 ML in 0.9 % Sodium Chloride 8.7 ML IVP ONE (08:32)
[2020-03-30] MEDS: Aspirin 81 MG TAB.CHEW PO SCH (09:32)
[2020-03-30] MEDS: Tiotropium 18 MCG inhalation IH SCH (10:39)
[2020-03-30 12:11] LABS: Hematocrit 41.6 % (35.3-44.9)
[2020-03-31] MEDS: Heparin 25,000 UNIT/250 ML D5W 25,000 UNIT/250 ML IV.SOLN IVC SCH ×2 (02:05→20:51)
[2020-03-31] MEDS: Albuterol 2.5 MG/3 ML NEBULIZER IH SCH ×3 (03:28→11:30)
[2020-03-31] MEDS: Tiotropium 18 MCG inhalation IH SCH (07:39)
[2020-03-31] MEDS: Budesonide/Formoterol 160/4.5 1 PUFF INH IH SCH ×2 (07:40→19:42)
[2020-03-31] MEDS: Aspirin 81 MG TAB.CHEW PO SCH (09:47)
[2020-03-31] MEDS ORDERED: Albuterol 2.5 MG/3 ML NEBULIZER IH PRN (14:35)
[2020-04-01 07:01] VITALS: BP 101/63
[2020-04-01] MEDS: Tiotropium 18 MCG inhalation IH SCH ×2 (07:20→07:23)
[2020-04-01] MEDS: Budesonide/Formoterol 160/4.5 1 PUFF INH IH SCH (07:21)
[2020-04-01] MEDS: Aspirin 81 MG TAB.CHEW PO SCH (08:11)
== END 2020-04-01 08:40 | disposition home or self-care (01) | DRG 247 ==
LOC: INVDIALAB 06:08 → 3BNU 13:35
PROVIDERS: ADMIT Internal Medicine Cardiovascular Disease; ATTEND Internal Medicine Cardiovascular Disease

== ENCOUNTER 2021-08-27 22:03 | Inpatient (IN) ==
[2021-08-27 22:27] LABS: Basophils # 0.1 K/mcL (0.0-0.2); Basophils % 0.7 %; Eosinophils # 0.1 K/mcL (0.0-0.6); Hematocrit 44.6 % (35.3-44.9); Hemoglobin 15.3 g/dL (11.5-15.4); Immature Granulocytes % 0.3 % (0-4); Lymphocytes # 3.1 K/mcL (0.6-4.6); Lymphocytes % 35.2 %; Mean Corpuscular HGB Conc 34.3 g/dL (31.6-35.5); Mean Corpuscular Hemoglobin 30.9 pg (28.0-33.3); Mean Corpuscular Volume 90.1 fL (83.0-100.0); Mean Platelet Volume 8.6 fL (9.4-12.4); Monocytes # 0.5 K/mcL (0.0-1.3); Monocytes % 5.7 %; Neutrophils # 5.1 K/mcL (1.6-8.9); Platelet Count 323 K/mcL (140-400); Red Blood Count 4.95 M/mcL (3.82-4.97); Segmented Neutrophils % 57.1 %; White Blood Count 8.9 K/mcL (4.3-11.1)
[2021-08-27] MEDS ORDERED: Nitroglycerin 0.4 MG TAB.SUBL SL ONE ×2 (22:30→22:48)
[2021-08-27 22:38] LABS: D-Dimer 465 ng/mLFEU (0-500)
[2021-08-27] MEDS ORDERED: *HR* Heparin 5,000 UNIT/ML VIAL IVP ONE (22:41)
[2021-08-27] MEDS ORDERED: *HR* Heparin 5,000 UNIT/ML VIAL IVP PRN ×2 (22:41)
[2021-08-27] MEDS ORDERED: Heparin 25,000UNIT/250ML 1/2NS 25,000 UNIT/250 ML IV.SOLN IVC SCH (22:45)
[2021-08-27 22:46] LABS: BUN/Creatinine Ratio 13 (6-26); Blood Urea Nitrogen 9 mg/dL (8-23); Calcium 9.2 mg/dL (8.6-10.3); Carbon Dioxide 23 mEq/L (23-29); Chloride 105 mEq/L (98-107); Glucose 114 mg/dL (70-105); Osmolality,Calculated 288 (280-300); Potassium 3.7 mEq/L (3.5-5.1); Sodium 139 mEq/L (136-145); Troponin I < 0.03 ng/mL (< 0.04); eGFR For African Americans > 60 (> 60); eGFR For Non-African Americans > 60 (> 60)
[2021-08-27 22:56] LABS: Heparin anti-factor XA UFH < 0.04 IU/mL (0.30-0.70)
[2021-08-27 22:57] LABS: Prothrombin Time 11.4 Seconds (9.4-12.1)
[2021-08-28] MEDS ORDERED: Morphine Sulfate 2 MG/ML SYRINGE IVP PRN (01:55)
[2021-08-28] MEDS ORDERED: Perflutren Lipid Microsphere 1.3 ML in 0.9 % Sodium Chloride 8.7 ML IVP PRN (01:57)
[2021-08-28] MEDS ORDERED: Naloxone 0.4 MG/ML INJ IVP PRN (02:07)
[2021-08-28] MEDS ORDERED: Acetaminophen 325 MG TABLET PO PRN (02:07)
[2021-08-28] MEDS ORDERED: Ondansetron 4 MG/2 ML VIAL IVP PRN (02:07)
[2021-08-28 03:12] LABS: Influenza A PCR Negative (Negative); Influenza B PCR Negative (Negative); Resp. Syncytial Virus PCR Negative (Negative)
[2021-08-28 03:14] LABS: SARS-CoV-2 by PCR (In House) Negative (Negative)
[2021-08-28 06:13] LABS: Hemoglobin 13.5 g/dL (11.5-15.4); Mean Corpuscular HGB Conc 32.9 g/dL (31.6-35.5); Mean Corpuscular Hemoglobin 29.9 pg (28.0-33.3); Mean Corpuscular Volume 90.7 fL (83.0-100.0); Mean Platelet Volume 8.8 fL (9.4-12.4); Platelet Count 280 K/mcL (140-400); Red Blood Count 4.52 M/mcL (3.82-4.97); Red Cell Distribution Width 12.2 % (11.5-14.5); White Blood Count 7.1 K/mcL (4.3-11.1)
[2021-08-28] MEDS ORDERED: Regadenoson 0.4 MG/5 ML SYRINGE IVP ONE (06:32)
[2021-08-28 06:36] LABS: BUN/Creatinine Ratio 13 (6-26); Blood Urea Nitrogen 8 mg/dL (8-23); Carbon Dioxide 23 mEq/L (23-29); Chloride 106 mEq/L (98-107); Chol/HDL Ratio 4.9 (0-4.9); Cholesterol 175 mg/dL (< 200); Glucose 116 mg/dL (70-105); HDL Cholesterol 36 mg/dL (40-59); LDL Cholesterol,Calculated 95 mg/dL (< 100); Magnesium 2.1 mg/dL (1.6-2.6); Osmolality,Calculated 287 (280-300); Potassium 3.8 mEq/L (3.5-5.1); Sodium 139 mEq/L (136-145); Triglycerides 219 mg/dL (< 150); Troponin I 1.84 ng/mL (< 0.04); eGFR For African Americans > 60 (> 60); eGFR For Non-African Americans > 60 (> 60)
[2021-08-28 06:45] LABS: Estimated Average Glucose 134 mg/dl; Hemoglobin A1C 6.3 %
[2021-08-28] MEDS: Aspirin Enteric Coated 81 MG Tablet PO SCH ×2 (09:35→10:31)
[2021-08-28] MEDS ORDERED: ISOVUE-370 200 ML INFUS..BTL ONE (10:19)
[2021-08-28] MEDS ORDERED: *HR* Heparin 10,000 UNIT/10 ML VIAL ONE (10:19)
[2021-08-28] MEDS ORDERED: Nitroglycerin 1,000 MCG/5 ML VIAL IV ONE (10:19)
[2021-08-28] MEDS ORDERED: Heparin 1,000 UNITS/500 mL 500 ML ONE (10:19)
[2021-08-28] MEDS ORDERED: 0.9 % Sodium Chloride 2,000 ML ONE (10:19)
[2021-08-28] MEDS ORDERED: *HR* Midazolam HCl 2 MG/2 ML VIAL ONE (10:32)
[2021-08-28] MEDS ORDERED: *HR* FentaNYL (PF) 100 MCG/2 ML VIAL ONE (10:32)
[2021-08-28] MEDS ORDERED: *HR* Nitroprusside 50 MG VIAL IVC ONE (11:30)
[2021-08-28] MEDS ORDERED: D5% in Water 250 ML ONE (11:31)
[2021-08-28] MEDS: Albuterol 2.5 MG/3 ML NEBULIZER IH SCH ×4 (15:34→23:35)
[2021-08-28] MEDS: *HR* Heparin 5,000 UNIT/ML VIAL SQ SCH (17:25)
[2021-08-29 01:18] LABS: Hematocrit 39.2 % (35.3-44.9); Hemoglobin 12.7 g/dL (11.5-15.4); Mean Corpuscular HGB Conc 32.4 g/dL (31.6-35.5); Mean Corpuscular Hemoglobin 29.7 pg (28.0-33.3); Mean Corpuscular Volume 91.6 fL (83.0-100.0); Platelet Count 247 K/mcL (140-400); Red Blood Count 4.28 M/mcL (3.82-4.97); Red Cell Distribution Width 12.1 % (11.5-14.5); White Blood Count 5.9 K/mcL (4.3-11.1)
[2021-08-29 01:43] LABS: BUN/Creatinine Ratio 18 (6-26); Blood Urea Nitrogen 12 mg/dL (8-23); Calcium 8.8 mg/dL (8.6-10.3); Carbon Dioxide 23 mEq/L (23-29); Chloride 105 mEq/L (98-107); Glucose 105 mg/dL (70-105); Osmolality,Calculated 286 (280-300); Potassium 3.5 mEq/L (3.5-5.1); Sodium 138 mEq/L (136-145); eGFR For African Americans > 60 (> 60); eGFR For Non-African Americans > 60 (> 60)
[2021-08-29] MEDS: Albuterol 2.5 MG/3 ML NEBULIZER IH SCH ×3 (03:56→12:00)
[2021-08-29] MEDS: *HR* Heparin 5,000 UNIT/ML VIAL SQ SCH (06:17)
[2021-08-29] MEDS ORDERED: Metoprolol XL (24 HR) Succ 25 MG TAB.ER.24H PO SCH (09:00)
[2021-08-29] MEDS ORDERED: Nitroglycerin 0.4 MG TAB.SUBL SL PRN (09:13)
[2021-08-29] MEDS: Aspirin Enteric Coated 81 MG Tablet PO SCH (09:22)
[2021-08-29 11:21] VITALS: BP 111/72; PULSE 72; TEMP 97.7; O2SAT 96
== END 2021-08-29 13:52 | disposition home or self-care (01) | DRG 247 ==
LOC: 3BNU 22:03 → EMEROOARM 22:03 → SUATTDRO 23:54 → 3BNU 08-28 00:01
PROVIDERS: ADMIT Student in an Organized Health Care Education/Training Program; ATTEND Student in an Organized Health Care Education/Training Program